=== PATIENT | female | born 1995 | race African-American/Black ===

== ENCOUNTER 2019-12-25 22:53 | Emergency (ER) | payer MEDICAID, OTHER ==
[~2019-12-25] VITALS: Ht 175.3 cm; Wt 65.8 kg
[2019-12-25 22:55] VITALS: BP 147/101
[2019-12-26] MEDS: ACETAMINOPHEN EXTRA STRENGTH 500 MG TAB PO ONE (00:20)
[2019-12-26 01:19] VITALS: BP 132/80
== END 2019-12-26 00:19 | disposition home or self-care (01) ==
LOC: MED 22:53
DX: S20.411A Abrasion of right back wall of thorax, initial encounter (principal); F17.210 Nicotine dependence, cigarettes, uncomplicated; F20.9 Schizophrenia, unspecified; Y08.89XA Assault by other specified means, initial encounter; Y93.39 Activity, other involving climbing, rappelling and jumping off; Y92.89 Other specified places as the place of occurrence of the external cause; Y99.8 Other external cause status
CPT/HCPCS: 71045; 81025; 90471; 90715; 99283; Q0092